=== PATIENT | male | born 2000 | race Caucasian/White ===

== ENCOUNTER 2023-10-17 11:44 | Emergency (ER) | payer SELFPAY ==
[~2023-10-17] VITALS: Ht 175.3 cm; Wt 70.0 kg
[2023-10-17 11:52] VITALS: BP 156/91; PULSE 121; RESP 18; TEMP 98.2; O2SAT 97
[2023-10-17 12:55] LABS: *AMPHETAMINES SCREEN URINE PRESUMPTIVE POSITIVE (NEGATIVE); *BARBITURATES SCREEN URINE NEGATIVE (NEGATIVE); *BENZODIAZEPINES SCREEN URINE NEGATIVE (NEGATIVE); *COCAINE SCREEN URINE NEGATIVE (NEGATIVE); CANNABINOID URINE SCREEN PRESUMPTIVE POSITIVE (NEGATIVE); ECSTASY MDMA SCREEN URINE CONF.TEST INDICATED (NEGATIVE); METHADONE URINE SCREEN NEGATIVE (NEGATIVE); OPIATES URINE SCREEN NEGATIVE (NEGATIVE); PHENCYCLIDINE URINE SCREEN NEGATIVE (NEGATIVE)
[2023-10-17] MEDS ORDERED: DOXY100C5 MT (14:18)
[2023-10-17] MEDS: CEFTRIAXONE SODIUM 500MG VIAL IM ONE (14:39)
[2023-10-17] MEDS: LIDOCAINE HCL 1% 20ML VIAL INFIL ONE (14:41)
[2023-10-19 08:11] LABS: HSV TYPE 2 SPECIFIC AB IGG Negative: <0.91 index (0.00-0.90)
[2023-10-20 04:08] LABS: CHLAMYDIA TRACHOMATIS NAA Negative (Negative); NEISSERIA GONORRHOEAE NAA Negative (Negative)
== END 2023-10-17 14:46 | disposition home or self-care (01) ==
LOC: ER 11:44
DX: N34.2 Other urethritis (principal); R21 Rash and other nonspecific skin eruption
CPT/HCPCS: 99283; 86592; 86695; 86696; 87491; 87591; 80305; 96372; J0696; J3490